=== PATIENT | male | born 1980 | race Caucasian/White ===

== ENCOUNTER 2019-12-03 05:07 | Observation (INO) ==
--- NOTE | 2019-11-30 09:14 | Anesthesiology Consultation ---
Date of Service November 30, 2019 Assessment & Plan Chart Review Chart Review: Acceptable Risk for Surgery and Patient NOT seen in Pre Admission Testing Consults Requested none ASA ASA2 Proposed Anesthesia Anesthesia Type: General History Surgery Operation Date: 12/03/19 07:00 Proposed Procedures p Laparoscopic Cholecystectomy - Camilo Suazo MD, FACS Height/Weight Height: 6 ft 1 in Weight: 107.955 kg Allergies Allergy/AdvReac Type Severity Reaction Status Date / Time atorvastatin [From Lipitor] Allergy Verified 11/26/19 14:06 wool Allergy Unknown Verified 11/14/19 10:33 onion AdvReac Unknown Verified 11/14/19 10:33 Medications Home Medications Medication Instructions Recorded Confirmed Last Taken acetaminophen-codeine 2 tab PO TID PRN 11/26/19 11/26/19 Unknown Past Medical History Medical History Cholelithiasis Constipation GERD (gastroesophageal reflux disease) Hx of scabies Hyperlipemia Inmate in correctional facility Urinary retention Exercise / Class Metabolic Activity II 4-5 Yardwork/Stairs/Walk up hill Past Anesthesia History No Hx of Anesthesia Complications and No Family Hx of Anesthesia Complications History of PONV No Hx of PONV and No Hx of Motion Sickness Social History Smoking Status: Unknown if ever smoked Testing Electrocardiogram Date: 08/10/18 Findings: + NSR @ (@ 68)
[2019-12-03] MEDS ORDERED: LR 15ML/HR IV SCH (06:00)
[2019-12-03] MEDS ORDERED: cefUROXime 1,500 MG in DEXTROSE 5% 100 ML IV SCH (06:00)
--- NOTE | 2019-12-03 06:28 | History & Physical Bridge Note ---
Date of Service December 03, 2019 History & Physical Bridge Note I have examined the patient, reviewed the History & Physical and in the interval since the performance of the History & Physical I have noted the following changes of clinical significance: no changes noted
[2019-12-03] MEDS ORDERED: MIDAZOLAM HCL 1 MG/ML 2ML VIAL ONE (06:42)
[2019-12-03] MEDS ORDERED: fentaNYL citrate 100 MCG/2 ML VIAL ONE (06:42)
[2019-12-03] MEDS ORDERED: ePHEDrine sulfate 50 MG/ML AMP IV PRN (06:52)
[2019-12-03] MEDS ORDERED: ONDANSETRON INJ 2 MG/ML 2 ML VIAL IV PRN ×2 (06:52→09:51)
[2019-12-03] MEDS ORDERED: HYDROmorphone INJ 1 MG/ML SYRINGE IV PRN (06:52)
[2019-12-03] MEDS ORDERED: PROMETHAZINE HCL 12.5 MG in SODIUM CHLORIDE 0.9% 50 ML IV PRN ×2 (06:52→09:51)
[2019-12-03] MEDS ORDERED: ATROPINE SULFATE 0.1 MG/ML 10ML SYR IV PRN (06:52)
[2019-12-03] MEDS ORDERED: BUPIVACAINE 0.5 % 5 MG/1 ML MPF 30ML VIAL ONE (06:59)
[2019-12-03] MEDS ORDERED: HYDROmorphone INJ 2 MG/ML SYR/VIAL ONE (07:20)
[2019-12-03] MEDS ORDERED: PROPOFOL IV EMULSION 10 MG/ML 20 ML VIAL IV ONE (07:46)
[2019-12-03] MEDS ORDERED: LIDOCAINE HCL 2% 2 ML VIAL/AMP(20MG/ML) INFIL ONE (07:46)
[2019-12-03] MEDS ORDERED: ONDANSETRON INJ 2 MG/ML 2 ML VIAL ONE (07:46)
[2019-12-03] MEDS ORDERED: NEOSTIGMINE METHYLSULFATE 5 MG/5 ML SYR ONE (07:46)
[2019-12-03] MEDS ORDERED: ROCURONIUM BROMIDE 10 MG/ML 5 ML VIAL IV ONE (07:46)
[2019-12-03] MEDS ORDERED: GLYCOPYRROLATE 0.2 MG/ML VIAL ONE (07:46)
[2019-12-03] MEDS ORDERED: ACETAMINOPHEN 1,000 MG/100 ML VIAL IV ONE (08:19)
--- NOTE | 2019-12-03 08:20 | Post Operative Brief Note ---
PG Immediate Post Op with CF Date of Surgery December 03, 2019 Pre & Post Diagnosis Operation Date: 12/03/19 07:00 Pre-Op Diagnosis: Chronic cholecystitis with calculus Post-Op Diagnosis: Chronic cholecystitis with calculus I identified the patient and participated in the time-out.: Yes Procedure Operation Date: 12/03/19 07:00 Actual Procedures p Laparoscopic Cholecystectomy - Camilo Suazo MD, FACS Surgeon Camilo Suazo MD, FACS Svp Of Digital Fanny Bergeron Estimated Blood Loss 15 Findings Consistent with Post-Op Diagnosis Specimens Specimen Description: Permanent specimen A: gallbladder and contents Drains Gerardo-Packer Drain (15fr round)
[2019-12-03] MEDS: fentaNYL citrate 100 MCG/2 ML VIAL IV PRN ×2 (08:46→08:51)
--- NOTE | 2019-12-03 09:21 | Operative Report (OR) ---
DATE OF OPERATION: 12/03/2019 NAME OF OPERATION: Laparoscopic cholecystectomy with lysis of adhesions. PREOPERATIVE DIAGNOSES: Cholelithiasis with chronic cholecystitis. POSTOPERATIVE DIAGNOSES: Cholelithiasis with chronic cholecystitis. adhesions STAFF SURGEON: Camilo Suazo MD. RESIDENT CARE COORDINATOR: Baljinder Bergeron PA-C. ANESTHESIA: General. DESCRIPTION OF PROCEDURE: The patient was brought in the Operating Room and placed on the operating table in supine position. His abdomen was prepped and draped in usual fashion. He did have a large tattoo, which I tried to avoid with my ports. A 0.5% plain Marcaine was used to anesthetize all incisions. Incision was made above the umbilicus, carrying dissection down to the fascia, placing a Veress needle, producing pneumoperitoneum and placing an 11 mm port. My clinical research assistant helped with prepping, draping, removal of the gallbladder and closure of the wounds. Under visualization, three 5 mm ports were placed, 1 cephalad, 2 laterally. Gallbladder was grasped and retracted. There were adhesions of surrounding tissue to the gallbladder and liver area. These were taken down both sharply and bluntly. Dissection was carried out the florencio hepatis identifying the area of the proximal gallbladder and what I felt is the cystic duct. It was clipped and transected. Prior to that, I identified what I felt was a cystic artery which was clipped and transected. At this point, the gallbladder was dissected away from the liver bed in the usual fashion. There were chronic adhesions in the area of the florencio hepatis from chronic inflammation. The patient did have a stone in the neck of the gallbladder. After appropriate irrigation and hemostasis, a 15-round Gerardo-Packer drain was placed into the subhepatic space through the lateral 5 mm port site, secured using 3-0 nylon suture. The gallbladder was placed into an Endobag. Then using a 5 mm camera, the Endobag was removed through the umbilical site. I did have to enlarge the fascial defect because of size of the stone. Fascia at the umbilicus closed using interrupted 0 PDS suture, subcutaneous tissue reapproximated using 2-0 plain suture, then the skin reapproximated using 4-0 Monocryl and Dermabond. The patient was transferred to Recovery Room in stable condition. I attest to the content of the Intraoperative Record and any orders documented therein. Any exceptions are noted below. MTDD
--- NOTE | 2019-12-03 09:44 | Anesthesiology Progress Note ---
Date of Service December 03, 2019 Anesthesia Post Procedure Vital Signs Vital Signs: Temp Pulse Pulse Resp BP BP Pulse Ox 12/03/19 09:30 55 L 18 129/93 100 12/03/19 09:20 36.4 C L 57 L 12 124/81 99 12/03/19 09:10 53 L 17 119/88 100 12/03/19 09:00 54 L 15 128/92 98 12/03/19 08:50 60 16 143/94 H 99 12/03/19 08:40 36.1 C L 72 24 148/105 H 98 12/03/19 05:38 36.8 C 69 20 136/93 97 Pain Intensity Right Lower Abdomen: Pain Intensity: 5 Transfer of Care Handoff Completed per policy Notes Mental Status: alert / awake / arousable and participated in evaluation Patient Amnestic to Procedure: Yes Nausea / Vomiting: adequately controlled Pain: adequately controlled Airway Patency, RR, SpO2: stable & adequate BP & HR: stable & adequate Hydration State: stable & adequate Anesthetic Complications: no major complications apparent and Pt Satisfied with anesthetic care
[2019-12-03] MEDS ORDERED: HYDROCODONE/ACETAMOPHEN 5/325MG TAB PO PRN (09:51)
[2019-12-03] MEDS ORDERED: PROMETHAZINE HCL 25 MG in SODIUM CHLORIDE 0.9% 50 ML IV PRN (09:51)
[2019-12-03] MEDS ORDERED: HYDROmorphone INJ 0.5 MG/0.5 ML SYR IV PRN (09:51)
[2019-12-03] MEDS: SODIUM CHLORIDE 0.9% 1000ML 1,000 ML IV SCH (09:59)
[2019-12-03] MEDS: HYDROCODONE/ACETAMOPHEN 5/325MG TAB PO PRN ×2 (10:44→20:32)
[2019-12-03] MEDS: DOCUSATE SODIUM/SENNA 50/8.6MG TAB PO SCH ×2 (10:45→20:32)
[2019-12-03] MEDS: HYDROmorphone INJ 1 MG/ML SYRINGE IV PRN ×3 (11:40→21:56)
[2019-12-03] MEDS: CEFAZOLIN 1000MG 1,000 MG/7.5 ML SYR IV SCH ×2 (13:31→21:43)
[2019-12-03] MEDS: IBUPROFEN 600 MG TAB PO PRN (13:48)
[2019-12-04] MEDS: IBUPROFEN 600 MG TAB PO PRN (00:15)
[2019-12-04] MEDS: HYDROCODONE/ACETAMOPHEN 5/325MG TAB PO PRN ×2 (02:15→07:50)
[2019-12-04] MEDS: SODIUM CHLORIDE 0.9% 1000ML 1,000 ML IV SCH (03:15)
[2019-12-04] MEDS: CEFAZOLIN 1000MG 1,000 MG/7.5 ML SYR IV SCH (05:18)
[2019-12-04 06:24] LABS: Basophils # (auto) 0.03 K/uL (0-0.2); Basophils % (auto) 0.5 %; Eosinophils # (auto) 0.16 K/uL (0-0.5); Eosinophils % (auto) 2.6 %; Hematocrit (blood only) 43.2 % (42-52); Hemoglobin 14.2 g/dL (14.0-18.0); Lymphocytes % (auto) 30.9 %; Mean Corpuscular Hemoglobin 28.9 pg (25-34); Mean Corpuscular Hgb Conc 32.9 g/dL (32-36); Mean Platelet Volume 9.8 fL (7.4-10.4); Monocytes # (auto) 0.53 K/uL (0.11-0.59); Monocytes % (auto) 8.6 %; Neutrophils # (auto) 3.53 K/uL (1.4-6.5); Neutrophils % (auto) 57.4 %; Platelet Count 197 K/uL (130-400); RDW Coefficient of Variation 13.4 % (11.5-14.5); RDW Standard Deviation 43.7 fL (36.4-46.3); Red Blood Count 4.91 M/uL (4.7-6.1); White Blood Count 6.15 K/uL (4.8-10.8)
[2019-12-04 06:51] LABS: Alanine Aminotransferase 47 U/L (12-78); Albumin Level 3.1 gm/dl (3.4-5.0); Aspartate Aminotransferase 25 U/L (15-37); BUN Creatinine Ratio 11.7 (10-20); Bilirubin Direct < 0.1 mg/dl (0-0.2); Blood Urea Nitrogen 14 mg/dl (7-18); Calcium 8.3 mg/dl (8.5-10.1); Carbon Dioxide 32 mmol/L (21-32); Chloride 106 mmol/L (98-107); Creatinine Clr Calc Pharmacy 103.8 ml/min; Est GFR (African American) 85.4; Est GFR (Non-African American) 73.7; Glucose 87 mg/dl (70-99); Sodium 141 mmol/L (136-145)
[2019-12-04 06:53] LABS: Albumin Globulin Ratio 0.9 (0.9-2); Alkaline Phosphatase 50 U/L (45-117); Bilirubin,Total 0.5 mg/dl (0.2-1); Globulin 3.4 gm/dl (2.5-4.0); Phosphorus 3.1 mg/dl (2.5-4.9); Total Protein 6.5 gm/dl (6.4-8.2)
[2019-12-04] MEDS: DOCUSATE SODIUM/SENNA 50/8.6MG TAB PO SCH (09:07)
--- NOTE | 2019-12-05 13:01 | Discharge Summary (DS) ---
PRINCIPAL DIAGNOSIS: Chronic cholecystitis. PROCEDURES: The patient underwent laparoscopic cholecystectomy with drainage. HISTORY OF PRESENT ILLNESS: The patient is a 39-year-old male who is an inmate at [facility] who has been having chronic abdominal pain for a very long time and felt to have biliary colic with chronic cholecystitis. HOSPITAL COURSE: He was brought into the hospital on 12/03/2019 where he underwent laparoscopic cholecystectomy. His gallbladder was very chronically scarred and somewhat difficult to remove. We did place a drain which he was discharged with. He was felt stable for discharge on 12/04/2019 to be followed in the surgical clinic within 1 week for drain removal.
== END 2019-12-04 09:20 ==
LOC: ASU 05:07 → 3N 05:07